=== PATIENT | male | born 1995 | race African-American/Black ===

== ENCOUNTER → 2020-08-12 | Outpatient (CLI) | payer OTHER ==
[~2020-08-12] MED LIST: HYDR-1179 PO
== END ==
LOC: LAB 09:07
PROVIDERS: ATTEND Nurse Practitioner Family
DX: R79.89 Other specified abnormal findings of blood chemistry (principal)
CPT/HCPCS: 36415; 84484

== ENCOUNTER 2020-08-18 20:52 | Emergency (ER) | payer OTHER ==
[~2020-08-18] VITALS: Ht 172.7 cm; Wt 70.1 kg
--- NOTE | 2020-08-18 20:56 | PHYS DOC ---
General Adult EDM: Chief Complaint: SHOUDLER HPI: HPI: ".. 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 and caught the ball.. then went down on my Rt shoulder .. With about 300 pounds of other players on top of me.... 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 shoulder injury. Patient has obvious AC separation right shoulder. Demonstrates laxity on stress of clavicle as compared to left shoulder AC. The patient does have deltoid sensation. Unable to abduct and adduct right shoulder due to pain in shoulder. Patient unable to hold arm extended due to pain. Patient is right-hand dominant distal neurovascular and right hand is equal to left hand. Capillary refill is equal in right hand as compared to left hand. Patient denies any past medical history patient denies any past history of shoulder injury or dislocation. No recent tr lico. No specific ill contacts. Patient is right-hand dominant. Patient denies any other injury other than right shoulder area. Review of Systems: Review of Systems: Constitutional: Denies fever or chills Eyes: Denies change in visual acuity HENT: Denies nasal congestion or sore throat Respiratory: Denies cough or shortness of breath Cardiovascular: Denies chest pain or edema GI: Denies abdominal pain, nausea, vomiting, bloody stools or diarrhea : Denies dysuria Musculoskeletal: Complaints of severe Rt. shoulder pain and weakness. Integument: Denies rash Neurologic: Denies headache, focal weakness or sensory changes Endocrine: Denies polyuria or polydipsia Lymphatic: Denies swollen glands Psychiatric: Denies depression or anxiety Family History: Family History: Noncontributory to presentation Current Medications: Current Meds: See nursing for home meds Allergies: Allergies: No known drug allergies Physical Exam: PE: Constitutional: Well developed, well nourished, moderate acute distress, non- toxic appearance. [] HENT: Normocephalic, atraumatic, bilateral external ears normal, oropharynx moist, no oral exudates, nose normal. [] Eyes: PERRLA, EOMI, conjunctiva normal, no discharge. [] Neck: Normal range of motion, no tenderness, supple, no stridor. [] Cardiovascular:Heart rate regular rhythm, no murmur [] Lungs & Thorax: Bilateral breath sounds clear to auscultation [] Abdomen: Bowel sounds normal, soft, no tenderness, no masses, no pulsatile masses. [] Skin: Warm, dry, no erythema, no rash. [] Back: No tenderness, no CVA tenderness. [] Extremities: No tenderness, no cyanosis, no clubbing, ROM intact, no edema. [] Except findings in right shoulder exam as per HPI Neurologic: Alert and oriented X 3, normal motor function, normal sensory function, no focal deficits noted. [] Psychologic: Affect anxious, judgement normal, mood normal. [] EKG: EKG: [] Radiology/Procedures: Radiology/Procedures: [address] [address] IMAGING REPORT Signed PATIENT: MACARIO NIETO DACCOUNT: [id number] : 1995 LOCATION: ER AGE: 25 SEX: M EXAM STATUS: REG ER ORD. PHYSICIAN: ARMANDO KINGSTON MD REASON: Inj from fall on right shoulder, pain to right shoulder and chest PROCEDURE: CHEST AP ONLY INDICATION: Reason: Inj from fall on right shoulder, pain to right shoulder and chest / Spl. Instructions: / History: COMPARISON: None. FINDINGS: Single view of chest obtained. No focal airspace consolidation. Cardiomediastinal contour unremarkable. No acute osseous abnormality. IMPRESSION: * No focal airspace consolidation or edema. Electronically signed by: Sue Zaragoza MD (08/18/2020 9:54 PM) [id number] DICTATED AND SIGNED BY: SUE ZARAGOZA MD DATE: 08/18/202152 CC: ARMANDO KINGSTON MD; PCP,NO ~MTH0 0 [][address] [address] IMAGING REPORT Signed PATIENT: MACARIO NIETO DACCOUNT: [id number] : 1995 LOCATION: ER AGE: 25 SEX: M EXAM STATUS: REG ER ORD. PHYSICIAN: ARMANDO KINGSTON MD REASON: Inj from fall on right shoulder, pain to right shoulder and chest PROCEDURE: SHOULDER 2+V RIGHT INDICATION: Reason: Inj from fall on right shoulder, pain to right shoulder and chest / Spl. Instructions: / History: COMPARISON: None. IMPRESSION: Right shoulder: 3 views obtained. No acute fracture or dislocation Electronically signed by: Sue Zaragoza MD (08/18/2020 9:53 PM) [id number] DICTATED AND SIGNED BY: SUE ZARAGOZA MD DATE: 08/18/202150 CC: ARMANDO KINGSTON MD; PCP,NO ~MTH0 0 Heart Score: Risk Factors: Risk Factors: DM, Current or recent (<one month) smoker, HTN, HLP, family history of CAD, obesity. Risk Scores: Score 0 - 3: 2.5% MACE over next 6 weeks - Discharge Home Score 4 - 6: 20.3% MACE over next 6 weeks - Admit for Clinical Observation Score 7 - 10: 72.7% MACE over next 6 weeks - Early Invasive Strategies Course & Med Decision Making: Course & Med Decision Making Pertinent Labs and Imaging studies reviewed. (See chart for details) Patient wear sling and swath. Ice packs as needed. Take Tylenol and ibuprofen as needed for pain. For marked pain may take Vicoprofen up to 4 times a day. Patient follow-up with orthopedics of his choice. Patient given [facility] [phone]. Discharge neurovascular intact after application of sling and swath. Patient to do passive: Movements 4 times a day with right shoulder. Follow-up a must. After 1 week start doing gentle wall climbing type exercises to strengthen right shoulder. Consider repeat x-ray in 2 weeks if no improvement. Impression: 1. AC separation right shoulder 2. Rotator cuff injury right shoulder [] Dragon Disclaimer: Dragon Disclaimer: This electronic medical record was generated, in whole or in part, using a voice recognition dictation system. Departure Departure: Referrals: PCP,NO (PCP) Scripts Hydrocodone/Ibuprofen (HYDROCODONE-IBUPROFEN 7.5-200 ) 1 Each Tablet 30 TAB PO PRN Q6HRS PRN for PAIN, #30 TAB 0 Refills Prov: ARMANDO KINGSTON MD 2/3/21 Dragon Disclaimer This chart was dictated in whole or in part using Voice Recognition software in a busy, high-work load, and often noisy Emergency Department environment. It may contain unintended and wholly unrecognized errors or omissions. ARMANDO KINGSTON MD Aug 18, 2020 20:56
[2020-08-18] MEDS ORDERED: IV RINGERS SOLUTION,LACTATED 1,000 ML IV ONE (21:15)
[2020-08-18] MEDS ORDERED: MORPHINE SULFATE 10 MG/ML SYRINGE. SQ ONE (21:15)
[2020-08-18 21:29] VITALS: BP 144/96
[2020-08-18] MEDS ORDERED: HYDR-1179 PO (21:29)
--- NOTE | 2020-08-18 21:55 | RAD ---
INDICATION: Reason: Inj from fall on right shoulder, pain to right shoulder and chest / Spl. Instruct ions: / History: COMPARISON: None. IMPRESSION: Right shoulder: 3 views obtained. No acute fracture or dislocation Electronically signed by: Kavin Zaragoza MD (08/18/2020 9:53 PM) [id number]
--- NOTE | 2020-08-18 21:57 | RAD ---
INDICATION: Reason: Inj from fall on right shoulder, pain to right shoulder and chest / Spl. Instruct ions: / History: COMPARISON: None. FINDINGS: Single view of chest obtained. No focal airspace consolidation. Cardiomediastinal contour unremarkable. No acute osseous abnormality. IMPRESSION: * No focal airspace consolidation or edema. Electronically signed by: Kavin Zaragoza MD (08/18/2020 9:54 PM) [id number]
== END 2020-08-18 22:00 | disposition home or self-care (01) ==
LOC: ER 20:52
DX: S43.101A Unspecified dislocation of right acromioclavicular joint, initial encounter (principal); S46.001A Unspecified injury of muscle(s) and tendon(s) of the rotator cuff of right shoulder, initial encounter; W50.0XXA Accidental hit or strike by another person, initial encounter; Y93.61 Activity, american tackle football; Y92.89 Other specified places as the place of occurrence of the external cause; Y99.8 Other external cause status
CPT/HCPCS: 29240; 71045; 73030; 96372; 99284; J2270

== ENCOUNTER 2021-02-10 20:20 | Emergency (ER) | payer OTHER ==
[~2021-02-10] VITALS: Ht 172.7 cm; Wt 70.1 kg
[2021-02-10 20:39] VITALS: BP 115/70
--- NOTE | 2021-02-10 20:42 | PHYS DOC ---
Past History Past Medical History: No Pertinent History (JOJO LYON APRN) Past Surgical History: No Surgical History (JOJO LYON APRN) Alcohol Use: None (JOJO LYON APRN) General Adult EDM: Chief Complaint: FOOT INJURY PAIN HPI: HPI: Patient is a 25-year-old female coming in for right ankle pain following an injury. Patient reports that he was playing basketball and landed on the lateral aspect of his ankle. Patient rates pain 10 out of 10. It does not radiate. No treatment prior to arrival. Patient states that he was unable to bear weight and ambulate. Patient denies decreased sensation to extremity. (JOJO LYON APRN) Review of Systems: Review of Systems: 14 body systems of the review of systems have been reviewed. See HPI for pertinent positive and negative responses, otherwise all other systems are negative, nonpertinent or noncontributory (JOJO LYON APRN) Allergies: Allergies: Allergies Coded Allergies Type Severity Reaction Last Updated Verified No Known Drug Allergies 08/18/20 No (JOJO LYON APRN) Physical Exam: PE: Constitutional: Well developed, well nourished, no acute distress, non-toxic appearance. [] HENT: Normocephalic, atraumatic Eyes: PERRL, conjunctiva normal, no discharge. [] Neck: Normal range of motion, no stridor Cardiovascular: Normal peripheral perfusion Lungs & Thorax: Normal work of breathing, no tachypnea Skin: Warm, dry, no erythema, no rash, no wounds. [] Back: normal range of motion Extremities: No tenderness, no cyanosis, no clubbing, ROM intact, no edema. Right ankle: Swelling noted to lateral aspect of right ankle, pain with palpation to the lateral and medial aspect of ankle, neuro intact, flexion- extension of ankle intact, adduction/abduction limited due to pain, range of motion of toes intact. [] Neurologic: Alert and oriented X 3, normal motor function, normal sensory function, no focal deficits noted. [] Psychologic: Affect normal, judgement normal, mood normal. [] (JOJO YLON APRN) EKG: EKG: [] (JOJO LYON APRN) Radiology/Procedures: Radiology/Procedures: PROCEDURE: ANKLE RIGHT 3V Right ankle 3 views: Reason for examination: Twisted right ankle with lateral pain and swelling. No acute fracture or dislocation is seen. The bone density is normal. No abnormal periosteal reaction is seen. Joint spaces are maintained. There is however soft tissue swelling over the lateral malleolus which may reflect ligamentous injury. IMPRESSION: No acute bony abnormality seen at the right ankle. Soft tissue swelling especially over the lateral malleolus which may reflect ligamentous injury. Electronically signed by: Meagan Cortes MD (02/10/2021 8:48 PM) [facility] DICTATED AND SIGNED BY: MEAGAN CORTES MD DATE: 02/10/212046 CC: EMERGENCY,DEPARTMENT; JOJO LYON APRN; PCP,NO ~MTH0 0[] (JJOO LYON APRN) Heart Score: C/O Chest Pain: No Risk Factors: Risk Factors: DM, Current or recent (<one month) smoker, HTN, HLP, family history of CAD, obesity. Risk Scores: Score 0 - 3: 2.5% MACE over next 6 weeks - Discharge Home Score 4 - 6: 20.3% MACE over next 6 weeks - Admit for Clinical Observation Score 7 - 10: 72.7% MACE over next 6 weeks - Early Invasive Strategies (JOJO LYON APRN) Course & Med Decision Making: Course & Med Decision Making Pertinent Labs and Imaging studies reviewed. (See chart for details) [] Patient is a 25-year-old male being seen in the ER today for right ankle pain following an injury. An x-ray was performed of the ankle that showed no acute fracture but a possible ligamentous injury. Patient's pain was treated in the ER. Patient's ankle placed in Sunny wrap and given crutches and crutch training. I discussed with patient all findings and diagnostic testing as well as the need to follow-up with PCP for further evaluation and treatment or return to the ER if any new or worsening symptoms. Strict return precautions were also discussed at length. Patient voiced understanding and agreement with the plan. Patient is hemodynamically stable at the time of disposition. (JOJO LYON APRN) Course & Med Decision Making Did not see or evaluate patient. Agree with AUTO WASHER's work-up and disposition per note (MANUELA ABRAHAM MD) Miguel Disclaimer: Dragon Disclaimer: This electronic medical record was generated, in whole or in part, using a voice recognition dictation system. (JOJO LYON ROUTE SALES REPRESENTATIVE) Departure Departure: Impression: Primary Impression: Ankle sprain Qualified Codes: S93.401A - Sprain of unspecified ligament of right ankle, initial encounter Disposition: HOME / SELF CARE / HOMELESS Condition: GOOD Referrals: PCP,NO (PCP) Patient Instructions: Ankle Sprain Additional Instructions: You were seen in the ER today for right ankle injury. We performed an x-ray and it was negative for any fracture. As we discussed, there may be a possible ligament injury. Your pain was treated in the ER. This will likely improve over time. Your symptoms may be improved by something called the rice protocol. This is rest, ice, compression, elevation. Please follow-up when doing intense exercises that may make the pain worse. Sometimes gentle stretching can provide relief, but be careful to injury. It is important to perform gentle range of motion exercises to prevent stiff joints and chronic pain. Use ice packs over the affected areas to help decrease your pain. For th e first 24 hours you can apply ice 20 minutes on 20 minutes off for 4 times per day. Sometimes compression such as the use of an Sunny wrap can help with the swelling. You are also given crutches since you stated you are unable to bear weight. Please use these as directed in your crutch training. You may also elevate the affected area to help with the swelling. If your pain continues you may need to follow-up with an orthopedic doctor. Please follow-up with your primary care provider tomorrow regarding your ER visit today. EMERGENCY DEPARTMENT GENERAL DISCHARGE INSTRUCTIONS Thank you for coming to [facility] (ED) today and trusting us with you care. We trust that you had a positivie experience in our Emergency Department. If you wish to speak to the department management, you may call the director at [phone]. YOUR FOLLOW UP INSTRUCTIONS ARE FOLLOWS: 1. Do you have a private Doctor? If you do not have a private doctor, please ask for a resource list of physicians or clinics that may be able to assist you with follow up care. 2. The Emergency Physician has interpreted your x-rays. The X-Ray specialist will also review them. If there is a change in the findings, you will be notified in 48 hours when at all possible. 3. A lab test or culture has been done, your results will be reviewed and you will be notified if you need a change in treatment. ADDITIONAL INSTRUCTIONS AND INFORMATION: 1. Your care today has been supervised by a physician who is specially trained in emergency care. Many problems require more than one evaluation for a complete diagnosis and treatment. We recommend that you schedule your follow up appointment as recommended to ensure complete treatment of you illness or injury. If you are unable to obtain follow up care and continue to have a problem, or if your condition worsens, we recommend that you return to the ED. 2. We are not able to safely determine your condition over the phone nor are we able to give sound medical advice over the phone. For these safety reasons, if you call for medical advice we will ask you to come to the ED for further evaluation. 3. If you have any questions regarding these discharge instructions please call the ED at [phone]. SAFETY INFORMATION: In the interest of safety, wellness, and injury prevention; we encourage you to wear your sealbelt, if you smoke; quite smoking, and we encourage family to use a protective helmet for bicycling and other sporting events that present an increased risk for head injury. IF YOUR SYMPTOMS WORSEN OR NEW SYMPTOMS DEVELOP, OR YOU HAVE CONCERNS ABOUT YOUR CONDITION; OR IF YOUR CONDITION WORSENS WHILE YOU ARE WAITING FOR YOUR FOLLOW UP APPOINTMENT; EITHER CONTACT YOUR PRIMARY CARE DOCTOR, THE PHYSICIAN WHOSE NAME AND NUMBER YOU WERE GIVEN, OR RETURN TO THE ED IMMEDIATELY. JOJO LYON APRN Feb 10, 2021 20:42 MANUELA ABRAHAM MD Feb 10, 2021 21:34
[2021-02-10] MEDS ORDERED: HYDROcodone/APAP 5/325MG 1 TAB TABLET PO ONE (20:45)
--- NOTE | 2021-02-10 20:51 | RAD ---
Right ankle 3 views: Reason for examination: Twisted right ankle with lateral pain and swelling. No acute fracture or dislocation is seen. The bone density is normal. No abnormal periosteal reaction is seen. Joint spaces are maintained. There is however soft tissue swelling over the lateral malleol us which may reflect ligamentous injury. IMPRESSION: No acute bony abnormality seen at the right ankle. Soft tissue swelling especially over the lateral malleolus which may reflect ligamentous injury. Electronically signed by: Meagan Apodaca MD (02/10/2021 8:48 PM) SONJA
== END 2021-02-10 21:22 | disposition home or self-care (01) ==
LOC: ER 20:20
DX: S93.401A Sprain of unspecified ligament of right ankle, initial encounter (principal); W18.39XA Other fall on same level, initial encounter; Y93.67 Activity, basketball; Y92.89 Other specified places as the place of occurrence of the external cause; Y99.8 Other external cause status
CPT/HCPCS: 73610; 99283